=== PATIENT | male | born 1960 | race Two or more races ===

== ENCOUNTER 2021-02-10 05:39 | Day surgery (SDC) | payer BC, OTHER ==
[2021-02-08 08:56] VITALS: BMI 27.3
[2021-02-10 10:40] VITALS: TEMP 97.8
[2021-02-10 11:47] VITALS: BP 112/61; PULSE 79
== END 2021-02-10 12:26 | disposition home or self-care (01) ==
LOC: JASU-ENDO 05:39
PROVIDERS: ATTEND Internal Medicine Gastroenterology
PROC: 0DJD8ZZ Inspection of Lower Intestinal Tract, Via Natural or Artificial Opening Endoscopic (ICD-10-PCS; principal; 2021-02-10 10:15)
DX: Z12.11 Encounter for screening for malignant neoplasm of colon (principal)